=== PATIENT | female | born 1955 | race Caucasian/White ===

== ENCOUNTER 2018-05-11 11:39 | Day surgery (SDC) | payer BC ==
[~2018-05-11] VITALS: Ht 157.5 cm; Wt 56.6 kg
[2018-05-11] VITALS (18 sets, daily range): BP systolic 114–139; BP diastolic 57–79; PULSE 56–83; RESP 10–20; Ht 157.5 cm; Wt 56.6 kg
--- NOTE | 2018-05-11 12:58 | HPN ---
Date/Time of Note Date/Time of Note DATE: 05/11/18 TIME: 12:58 Interval H&P Admission Note Pt. seen H&P reviewed: No system changes ABBY CARBAJAL DPM May 11, 2018 12:58
[2018-05-11] MEDS ORDERED: BUPIVACAINE 0.5% (SDV) 30 ML INJ ONE (13:16)
--- NOTE | 2018-05-11 13:18 | PREAC ---
Date/Time of Note Date/Time of Note DATE: 05/11/18 TIME: 13:17 Anesthesia Eval and Record Evaluation Time Pre-Procedure Interview DATE: 05/11/18 TIME: 13:17 Age 62 Sex female NPO: 8 hrs Preoperative diagnosis b/l foot hardware Planned procedure removal of hardware Past Medical History Past Medical History: None Surgery & Anesthesia Issues No known issue Meds Anticoagulation: No Beta Hunter within 24 hr: No Reason Beta Hunter not given: Pt. not on B-Hunter Meds reviewed: Yes Allergies Coded Allergies: aspirin (Verified Allergy, Intermediate, swling eyes, hives, rashes, 05/10/18) Allergies Reviewed: Yes Labs/Studies Labs Reviewed: Reviewed by anesthesiologist test: Negative Studies: ECG Pre-procedure Exam Last vitals Vital Signs Date Temp Pulse Resp B/P (MAP) Pulse Ox O2 O2 Flow FiO2 Time Delivery Rate 05/11/18 97.5 57 16 127/57 100 12:40 (80) Airway: Adequate mouth opening, Adequate thyromental dist Mallampati: Mallampati II Teeth: Normal Lung: Normal Heart: Normal ASA Physical Status ASA physical status: 1 Emergency: None Planned Anesthetic General/MAC: ETT Pre-operative Attestations Prior to commencing anesthesia and surgery, the patient was re-evaluated, there was verification of: *The patient's identity *The results of appropriate recent lab work and preoperative vital signs *The above evaluation not changing prior to induction *Anesthetic plan, risk benefits, alternative and complications discussed with patient/family; questions answered; patient/family understands, accepts and wishes to proceed. JOHANNE DICKEY May 11, 2018 13:18
[2018-05-11] MEDS ORDERED: PROPOFOL 20 ML ONE ×2 (13:28→14:49)
[2018-05-11] MEDS ORDERED: FENTAnyl 50 MCG/ML VIAL ONE (13:28)
[2018-05-11] MEDS ORDERED: ALBUTEROL 0.083% (NEB) 2.5 MG/3 ML AMP HHN PRN (13:30)
[2018-05-11] MEDS ORDERED: METOCLOPRAMIDE 10 MG INJ IV PRN (13:30)
[2018-05-11] MEDS ORDERED: MEPERIDINE 25 MG INJ IV PRN (13:30)
[2018-05-11] MEDS ORDERED: FENTAnyl 50 MCG/ML VIAL IV PRN ×3 (13:30)
[2018-05-11] MEDS ORDERED: HYDROmorphONE 1 MG/5 ML IV SYRINGE IV PRN ×3 (13:30)
[2018-05-11] MEDS ORDERED: ONDANSETRON 4 MG INJ IV PRN (13:30)
[2018-05-11] MEDS ORDERED: DIPHENHYDRAMINE 50 MG INJ IV PRN (13:30)
[2018-05-11] MEDS ORDERED: DESFLURANE 15 MIN ONE (13:50)
[2018-05-11] MEDS ORDERED: SUCCINYLCHOLINE CHLORIDE 100 MG/5 ML SYG IV ONE (13:50)
[2018-05-11] MEDS ORDERED: LIDOCAINE 2% (SDV) 5 ML INJ ONE (13:50)
[2018-05-11] MEDS ORDERED: CEFAZOLIN 1 GM INJ ONE (14:49)
[2018-05-11] MEDS ORDERED: NEOSTIGMINE 3 MG/3 ML SYRINGE ONE (14:49)
[2018-05-11] MEDS ORDERED: ROCURONIUM 50 MG INJ ONE (14:49)
[2018-05-11] MEDS ORDERED: GLYCOPYRROLATE 0.4 MG INJ ONE (14:49)
--- NOTE | 2018-05-14 07:25 | PAC ---
Date/Time of Note Date/Time of Note DATE: 05/14/18 TIME: 07:25 Post-Anesthesia Notes Post-Anesthesia Note Last documented vital signs Vital Signs Date Temp Pulse Resp B/P (MAP) Pulse Ox O2 O2 Flow FiO2 Time Delivery Rate 05/11/18 96.8 61 16 125/59 99 Room Air 16:09 (81) 05/11/18 2.0 15:07 Activity: WNL Respiratory function: WNL Cardiovascular function: WNL Mental status: Baseline Pain reasonably controlled: Yes Hydration appropriate: Yes Nausea/Vomiting absent: Yes JOHANNE DICKEY May 14, 2018 07:25
--- NOTE | 2018-05-22 22:49 | OPR ---
Date/Time of Note Date/Time of Note DATE: 05/22/18 TIME: 22:41 Operative Report Free Text/Dictation Date of Surgery: 05/11/2018 Patient: Ashley Guerra Pre-operative Diagnoses: 1. Hardware irritation of the 5th metatarsal with prominent screws and plate, left foot. 2. Sural neuritis with entrapment, left foot. 3. Hardware irritation of the 1st metatarsal, right foot. 4. Soft tissue mass of the dorsomedial 1st metatarsophalangeal joint area, right foot. 5. Pain and difficulty in walking and shoe irritation secondary to the above. Post-operative Diagnoses: 1. Hardware irritation of the 5th metatarsal with prominent screws and plate, left foot. 2. 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 3. Sural neuritis with entrapment, left foot. 4. Hardware irritation of the 1st metatarsal, right foot. 5. Soft tissue mass consistent with foreign body granuloma, right foot. 6. Pain and difficulty in walking and shoe irritation secondary to the above. Procedure(s): 1. Removal of deep retained hardware of the 5th metatarsal, left foot. 2. Exostectomy with partial excision of bone, 5th metatarsal, left foot. 3. Decompression of the sural nerve scar tissue entrapment, left foot. 4. Removal of deep retained hardware of the 1st metatarsal, right foot. 5. Excision of soft tissue mass of the 1st metatarsophalangeal joint area, right foot. 6. Use and interpretation of intraoperative fluoroscopy. Surgeon: Abby Carbajal DPM Anesthesia: local anesthesia with LMA Operation: The patient was brought into the operative room and placed in a secure and supine position. Following the administration of LMA anesthesia, approximately 12 cc of 0.5% Marcaine plain was administered into the left foot and9 cc of 0.5% Marcaine plain was administered to the right foot. The bilateral foot and ankle were then prepped and draped in the usual sterile manner and an esmarch bandage was used to exsanguinate the left foot and the pneumatic below the knee tourniquet was inflated to 250 mm Hg. Attention was then directed to the lateral aspect of the left foot for procedure #1. Procedure #1: Intra-operative fluoroscopy was used to localize the plate and screws in the 5th metatarsal. Each screw site was marked on the skin. At this time, a linear incision was created over the lateral aspect of the 5th metatarsal directly over the plate on the lateral aspect. The dissection was carried deeper through subcutaneous tissue and fascia. A thickened layer of scar tissue was noted overlying the plate and screws. At this time, the plate was carefully dissected and demarcated from the surrounding soft tissues. At this time, the proper screwdriver was used to individually remove each screw from the plate. Once completed, the plate was carefully pried off of the bone. The remaining two screws on the dorsal aspect of the 5th metatarsal were located and removed as well. The area was flushed with copious amounts of sterile saline antibiotic solution. Procedure #2: Upon removal of the plate, it was noted that there was a moderate amount of bone overgrowth at the edges of the plate and into the unused screw holes which created an exostosis and prominence with sharp edges on the lateral aspect of the bone as well as a sharp prominence at the head of the bone at the prior fracture site. It was necessary to proceed with refinement of the 5th metatarsal and a power cross cut rasp was then used to completely rasp the distal 1/3rd of the 5th metatarsal to remove any osseous prominences and create a smooth bony contour. Following this, the area was again flushed with copious amounts of sterile saline antibiotic solution. Procedure #3: Following this, the thickened area of scar tissue overlying the bone and the subcutaneous tissues on the dorsolateral aspect of the foot were inspected and it was noted that the sural nerve was entrapped in this hypertrophic scar tissue. The scar tissue was excised and the area was bluntly dissected to release any adhesions from the nerve to complete the decompression. On the lateral aspect of the 5th metatarsal, the deep soft tissue was closed with 4-0 Vicryl. The subcutaneous tissue and fascia was closed with 4-0 Vicryl. The skin edges were closed with 3-0 Prolene in a running subcuticular stitch an d several simple interrupted stitches. A post-operative injection consisting of 0.5% Marcaine plain and 2 cc of dexamethasone phosphate was injected for post- operative pain and inflammation. A dry sterile well padded dressing consisting of tincture of benzoin, steri- strips, xeroform, 4x4s, David roll and Coban fashioned into a semi-compressive dressing. The tourniquet was released and it was noted that capillary filling time was instantaneous and all digits on the left foot were warm and viable. Procedure #4: An esmarch was used to exsanguinate the right foot and the tourniquet was inflated to 250 mm Hg. Following this, flouroscopy was used to localize the prominent screw in the dorsal aspect of the 1st metatarsal. A 1 cm incision was created on the dorsal aspect of the 1st metatarsal head and the incision was deepened through subcutaneous tissue and fascia. Blunt dissection was carried deeper until the 1st metatarsophalangeal joint capsule was encountered. A small incision was created in the capsule and the underlying hardware was palpable. A [place] screwdriver was used to engage the screw and with some difficulty, the screw was finally extracted from the surgical site. The area was flushed. Procedure #5: Following this, the original incision was extended and the prominent soft tissue mass on the dorsomedial aspect of the area beneath the skin was localized. The mass appeared to be a foreign body granuloma which contained a piece of old Prolene suture. The mass was encapsulated and appeared cyst like and the suture was bunched up within the mass and part of the suture was extending from the mass. The area was bluntly dissected to separate the mass from the adjacent soft tissues and once this was completed, the mass was successfully excised from the area and sent for pathology. The area was inspected for any other irregularities and none were found. On the dorsal aspect, the deep soft tissue was closed with 4-0 Vicryl. The subcutaneous tissue and fascia was closed with 4-0 Vicryl. The skin edges were closed with 3-0 Prolene in a running subcuticular stitch and several simple interrupted stitches. A post-operative injection consisting of 0.5% Marcaine plain and 2 cc of dexamethasone phosphate was injected for post-operative pain and inflammation. A dry sterile well padded dressing consisting of tincture of benzoin, steri- strips, xeroform, 4x4s, David roll and Coban fashioned into a semi-compressive dressing. The tourniquet was released and it was noted that capillary filling time was instantaneous and all digits on the right foot were warm and viable. Procedure #6: Use and interpretation of intra-operative fluoroscopy was performed throughout the procedures to locate the internal hardware in the left 5th metatarsal and right 1st metatarsal in order to minimize incisions and dissection and confirm that all retained hardware desired to be removed had been achieved. This modality was necessary to obtain the best possible result for this patient and exposed the surgeon to additional radiation. The patient apparently tolerated the procedures and anesthesia well and exited the operating room for the recovery room with vital signs stable and neurovascular status intact to the left and right feet. The patient has post- operative medications and instructions. Procedure Date: May 11, 2018 Preoperative Diagnosis Pre-operative Diagnoses: 1. Hardware irritation of the 5th metatarsal with prominent screws and plate, left foot. 2. Sural neuritis with entrapment, left foot. 3. Hardware irritation of the 1st metatarsal, right foot. 4. Soft tissue mass of the dorsomedial 1st metatarsophalangeal joint area, right foot. 5. Pain and difficulty in walking and shoe irritation secondary to the above. Postoperative Diagnosis Post-operative Diagnoses: 1. Hardware irritation of the 5th metatarsal with prominent screws and plate, left foot. 2. 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 3. Sural neuritis with entrapment, left foot. 4. Hardware irritation of the 1st metatarsal, right foot. 5. Soft tissue mass consistent with foreign body granuloma, right foot. 6. Pain and difficulty in walking and shoe irritation secondary to the above. Operation/Procedure Performed Procedure(s): 1. Removal of deep retained hardware of the 5th metatarsal, left foot. 2. Exostectomy with partial excision of bone, 5th metatarsal, left foot. 3. Decompression of the sural nerve scar tissue entrapment, left foot. 4. Removal of deep retained hardware of the 1st metatarsal, right foot. 5. Excision of soft tissue mass of the 1st metatarsophalangeal joint area, right foot. 6. Use and interpretation of intraoperative fluoroscopy. Surgeon see signature line Ultrasound Manager none Anesthesia Type: general Estimated Blood Loss: minimal Transfusion none Specimen soft tissue mass from right foot Grafts/Implants none Complications none Pt Condition Post Procedure: stable Disposition: home Procedure Description Operation: The patient was brought into the operative room and placed in a secure and supine position. Following the administration of LMA anesthesia, approximately 12 cc of 0.5% Marcaine plain was administered into the left foot and9 cc of 0.5% Marcaine plain was administered to the right foot. The bilateral foot and ankle were then prepped and draped in the usual sterile manner and an esmarch bandage was used to exsanguinate the left foot and the pneumatic below the knee tourniquet was inflated to 250 mm Hg. Attention was then directed to the lateral aspect of the left foot for procedure #1. Procedure #1: Intra-operative fluoroscopy was used to localize the plate and screws in the 5th metatarsal. Each screw site was marked on the skin. At this time, a linear incision was created over the lateral aspect of the 5th metatarsal directly over the plate on the lateral aspect. The dissection was carried deeper through subcutaneous tissue and fascia. A thickened layer of scar tissue was noted overlying the plate and screws. At this time, the plate was carefully dissected and demarcated from the surrounding soft tissues. At this time, the proper screwdriver was used to individually remove each screw from the plate. Once completed, the plate was carefully pried off of the bone. The remaining two screws on the dorsal aspect of the 5th metatarsal were located and removed as well. The area was flushed with copious amounts of sterile saline antibiotic solution. Procedure #2: Upon removal of the plate, it was noted that there was a moderate amount of bone overgrowth at the edges of the plate and into the unused screw holes which created an exostosis and prominence with sharp edges on the lateral aspect of the bone as well as a sharp prominence at the head of the bone at the prior fracture site. It was necessary to proceed with refinement of the 5th metatarsal and a power cross cut rasp was then used to completely rasp the distal 1/3rd of the 5th metatarsal to remove any osseous prominences and create a smooth bony contour. Following this, the area was again flushed with copious amounts of sterile saline antibiotic solution. Procedure #3: Following this, the thickened area of scar tissue overlying the bone and the subcutaneous tissues on the dorsolateral aspect of the foot were inspected and it was noted that the sural nerve was entrapped in this hypertrophic scar tissue. The scar tissue was excised and the area was bluntly dissected to release any adhesions from the nerve to complete the decompression. On the lateral aspect of the 5th metatarsal, the deep soft tissue was closed wit h 4-0 Vicryl. The subcutaneous tissue and fascia was closed with 4-0 Vicryl. The skin edges were closed with 3-0 Prolene in a running subcuticular stitch and several simple interrupted stitches. A post-operative injection consisting of 0.5% Marcaine plain and 2 cc of dexamethasone phosphate was injected for post- operative pain and inflammation. A dry sterile well padded dressing consisting of tincture of benzoin, steri- strips, xeroform, 4x4s, David roll and Coban fashioned into a semi-compressive dressing. The tourniquet was released and it was noted that capillary filling time was instantaneous and all digits on the left foot were warm and viable. Procedure #4: An esmarch was used to exsanguinate the right foot and the tourniquet was inflated to 250 mm Hg. Following this, flouroscopy was used to localize the prominent screw in the dorsal aspect of the 1st metatarsal. A 1 cm incision was created on the dorsal aspect of the 1st metatarsal head and the incision was deepened through subcutaneous tissue and fascia. Blunt dissection was carried deeper until the 1st metatarsophalangeal joint capsule was encountered. A small incision was created in the capsule and the underlying hardware was palpable. A [place] screwdriver was used to engage the screw and with some difficulty, the screw was finally extracted from the surgical site. The area was flushed. Procedure #5: Following this, the original incision was extended and the prominent soft tissue mass on the dorsomedial aspect of the area beneath the skin was localized. The mass appeared to be a foreign body granuloma which contained a piece of old Prolene suture. The mass was encapsulated and appeared cyst like and the suture was bunched up within the mass and part of the suture was extending from the mass. The area was bluntly dissected to separate the mass from the adjacent soft tissues and once this was completed, the mass was successfully excised from the area and sent for pathology. The area was inspected for any other irregularities and none were found. On the dorsal aspect, the deep soft tissue was closed with 4-0 Vicryl. The subcutaneous tissue and fascia was closed with 4-0 Vicryl. The skin edges were closed with 3-0 Prolene in a running subcuticular stitch and several simple inte rrupted stitches. A post-operative injection consisting of 0.5% Marcaine plain and 2 cc of dexamethasone phosphate was injected for post-operative pain and inflammation. A dry sterile well padded dressing consisting of tincture of benzoin, steri-stri ps, xeroform, 4x4s, David roll and Coban fashioned into a semi-compressive dressing. The tourniquet was released and it was noted that capillary filling time was instantaneous and all digits on the right foot were warm and viable. Procedure #6: Use and interpretation of intra-operative fluoroscopy was performed throughout the procedures to locate the internal hardware in the left 5th metatarsal and right 1st metatarsal in order to minimize incisions and dissection and confirm that all retained hardware desired to be removed had been achieved. This modality was necessary to obtain the best possible result for this patient and exposed the surgeon to additional radiation. The patient apparently tolerated the procedures and anesthesia well and exited the operating room for the recovery room with vital signs stable and neurovascular status intact to the left and right feet. The patient has post- operative medications and instructions. ABBY CARBAJAL DPM May 22, 2018 22:49
== END 2018-05-11 18:09 | disposition home or self-care (01) ==
LOC: SDS 11:39
PROVIDERS: ATTEND Podiatrist Foot & Ankle Surgery
DX: T84.84XA Pain due to internal orthopedic prosthetic devices, implants and grafts, initial encounter (principal); Y79.3 Surgical instruments, materials and orthopedic devices (including sutures) associated with adverse incidents; D16.32 Benign neoplasm of short bones of left lower limb; L72.0 Epidermal cyst; Z47.2 Encounter for removal of internal fixation device
CPT/HCPCS: 20680; 28288; 64704; 73630; 88300; 88304; J0690; J1170; J2405; J2710; J2765; J3010; L3260